=== PATIENT | female | born 1995 | race Caucasian/White ===

== ENCOUNTER 2021-06-24 19:05 | Emergency (ER) | payer OTHER, SELFPAY ==
[2021-06-24 19:10] VITALS: BP 140/90; PULSE 136; RESP 20; TEMP 38.1; O2SAT 98
--- NOTE | 2021-06-24 19:11 | ED.URI ---
HPI - URI/Sore Throat General Chief Complaint: Upper Respiratory Infection Stated Complaint: Sore Throat/Fever Time Seen by Provider: 06/24/21 19:11 Source: patient and RN notes reviewed History of Present Illness HPI Narrative: Patient is a 25-year-old female who presents the urgent care with complaints of sore throat and fever. Patient states that she felt bad yesterday with fatigue and then woke up today with a sore throat and fever. Patient states she did take Tylenol at 3:30 PM. Denies of any known ill exposures. States that no one else in the home has been ill. Patient states she does have a history of asthma and has felt some intermittent shortness of breath but has not needed any treatments. No other acute complaints. No acute distress noted. Patient aware of the plan of care. Some parts of this dictation were generated by voice recognition software and may contain typographical and/or grammatical inaccuracies. Related Data Home Medications Medication Instructions Recorded Confirmed amitriptyline 10 mg PO TID 06/24/21 06/24/21 clomiphene citrate See Rx Instructions .ROUTE .COMPLEX 06/24/21 06/24/21 Allergies Allergy/AdvReac Type Severity Reaction Status Date / Time midazolam [From Versed] Allergy Severe pass out Verified 06/24/21 19:09 Review of Systems Review of Systems: CONSTITUTIONAL: Reports of fever, chills, sweats EYES: Denies visual changes, redness, or discharge. ENT: Denies rhinorrhea, congestion, otalgia. Reports of sore throat CARDIOVASCULAR: Denies chest pain, palpitations, or edema. RESPIRATORY: Denies cough or dyspnea. GASTROINTESTINAL: Denies abdominal pain, nausea, vomiting, or diarrhea. GENITOURINARY: Denies dysuria or hematuria. SKIN: Denies rash or itching. MUSCULOSKELETAL: Denies back pain, joint pain, or myalgia. NEUROLOGIC: Denies headache, numbness, or weakness. All other systems reviewed are negative, except as documented in HPI. [facility] Surgical History Surgical History Hx of removal of ovary Family History Family History Mother Family history of thyroid disease Hypertension Family history of kidney disease Sibling Family history of mental disorder Depression Family history of migraine headaches Asthma Family history of alcoholism Father Hypertension Family history of cardiovascular disease Family history of arthritis Family history of congestive heart failure Other Cerebrovascular accident Diabetes mellitus Family history of Alzheimer's disease Family history of anemia Family history of chronic obstructive pulmonary disease Family history of hearing loss Family history of lung cancer Family history of lung disease Family history of malignant neoplasm of bone Family history of malignant neoplasm of breast Family history of obesity Family history of osteoporosis Social History Social History (Reviewed 04/16/20 @ 16:15 by Ambreen Blancas [facility]) Smoking status: Never smoker Alcohol intake: never Comments At the time of my signature, I reviewed and agree with the nursing past medical, surgical, social, and family history. There is no relevant family history pertinent to the patient complaint. Exam Narrative: GENERAL: This is a well-nourished, well-developed patient. Appears slightly fatigued HEAD: normocephalic, atraumatic. EYES: PERRL. Sclera clear/white. Vision is grossly intact. EARS: External ears normal, auditory canals clear and without drainage, TMs normal without perforation. Hearing grossly intact. NOSE: External nose normal with no obvious nasal discharge, nares without redness, no rhinorrhea. THROAT: Mucous membranes moist. Moderate erythema noted posterior pharynx with mild bilateral tonsillar edema/erythema with moderate postnasal drainage. No exudate or ulceration NECK: Neck supple, non-tender without lymphadeno
== END 2021-06-24 19:44 | disposition home or self-care (01) ==
PROVIDERS: Emergency Provider Nurse Practitioner Family
DX: J02.9 Acute pharyngitis, unspecified (principal); Z20.822 Contact with and (suspected) exposure to COVID-19
CPT/HCPCS: 87081; 87426; 87804; 87880; 99213; C9803; G0463

== ENCOUNTER 2024-04-18 12:58 | Emergency (ER) | payer OTHER, SELFPAY ==
[2024-04-18 13:12] VITALS: BP 151/77; PULSE 104; RESP 18; TEMP 36.6; O2SAT 100
[2024-04-18 13:20] LABS: EDSTREPNEGPOS1 Negative (Negative)
[2024-04-18 13:26] LABS: EDCOVIDSCREEN Negative (Negative); EDINFLUASCREEN Positive (Negative); EDINFLUBSCREEN Negative (Negative)
--- NOTE | 2024-04-18 13:31 | ED_ITS ---
HPI - General Adult General Chief complaint: Upper Respiratory Infection Stated complaint: Sore Throat/Chest Congestion Source: patient Mode of arrival: ambulatory Limitations: no limitations History of Present Illness HPI narrative: Patient presents for evaluation of sick symptoms. Symptom onset six days ago. She reports sinus congestion, sore throat, bilateral ear pain, body aches, fever and chills. She denies any nausea, vomiting or diarrhea. Her child was recently sick with similar symptoms. She does not smoke. Related Data Home Medications ?Medication ?Instructions ?Recorded ?Confirmed ?Last Taken ?Type amitriptyline 10 mg tablet 10 mg PO TID 06/24/21 06/24/21 Unknown History clomiphene citrate 50 mg tablet See Rx Instructions .Route .COMPLEX 06/24/21 06/24/21 Unknown History diltiazem HCl 180 mg mg PO 04/18/24 Unknown History capsule,extended release 24 hr, controlled (DILT-XR) hydrochlorothiazide 12.5 mg tablet mg 04/18/24 Unknown History Allergies Allergy/AdvReac Type Severity Reaction Status Date / Time midazolam (From Versed) Allergy Severe pass out Verified 06/24/21 19:09 Review of Systems Review of Systems: CONSTITUTIONAL: Reports fever and chills EYES: Denies visual changes, redness, or discharge. ENT: Reports sinus congestion/drainage, sore throat and bilateral otalgia CARDIOVASCULAR: Denies chest pain, palpitations, or edema. RESPIRATORY: Reports cough and mild SOB GASTROINTESTINAL: Denies nausea, vomiting, or diarrhea. GENITOURINARY: Denies dysuria or hematuria. SKIN: Denies rash or itching. MUSCULOSKELETAL: Reports generalized body aches NEUROLOGIC: Denies headache, numbness, dizziness, or weakness. PSYCHIATRIC: Denies anxiety or depression. [facility] Past Medical History Medical History Teratoma Surgical History Surgical History Hx of removal of ovary Family History Family History Mother Family history of thyroid disease Hypertension Family history of kidney disease Sibling Family history of mental disorder Depression Family history of migraine headaches Asthma Family history of alcoholism Father Hypertension Family history of cardiovascular disease Family history of arthritis Family history of congestive heart failure Other Cerebrovascular accident Diabetes mellitus Family history of Alzheimer's disease Family history of anemia Family history of chronic obstructive pulmonary disease Family history of hearing loss Family history of lung cancer Family history of lung disease Family history of malignant neoplasm of bone Family history of malignant neoplasm of breast Family history of obesity Family history of osteoporosis Social History Social History Smoking status: Never smoker Alcohol intake: never Living arrangements: with family Gender identity (if verbalized by the patient): Female Sexual Orientation (if Verbalized by the Patient): Straight or Heterosexual Spiritual care concerns: No Exam Narrative: GENERAL: Appears acutely ill but nontoxic HEAD: Normocephalic, atraumatic. EYES: PERRLA and EOMI. ENT: Nares clear, no rhinorrhea or epistaxis. Mucous membranes moist. Oropharynx without tonsillar hypertrophy exudate or other lesions. Bilateral TMs pearly salvador nonbulging NECK: Supple. No adenopathy or masses. No carotid bruits or JVD CHEST: Clear to auscultation. No respiratory distress. No wheezes rales or rhonchi HEART: Regular rate and rhythm. No murmur heard. Normal peripheral pulses. ABDOMEN: Soft, nontender, nondistended, normal active bowel sounds. EXTREMITIES: Normal range of motion. No edema. SKIN: Warm, dry, no rash. NEURO: No focal deficits. Alert and oriented x3. PSYCH: Normal mood and affect. Course Course Emergency Course: This is a 28-year-old female who presented for evaluation of sick symptoms. Influenza A positive. Through shared decision making opted to proceed with Tamiflu even though symptom onset outside of typical window. Follow up with PCP. Go to the ER for worsening symptoms. She requested prednisone so will dc with script for that also. Patient in agreement with care. Level of Care: Express Care Visit Vital Signs Vital signs: Vital Signs Temperature 36.6 C 04/18/24 13:12 Pulse Rate 104 H 04/18/24 13:12 Respiratory Rate 18 04/18/24 13:12 Blood Pressure 151/77 H 04/18/24 13:12 Pulse Oximetry 100 04/18/24 13:12 Oxygen Delivery Room Air 04/18/24 13:12 Temperature 36.6 C 04/18/24 13:12 Pulse Rate 104 H 04/18/24 13:12 Respiratory Rate 18 04/18/24 13:12 Blood Pressure 151/77 H 04/18/24 13:12 Pulse Oximetry 100 04/18/24 13:12 Oxygen Delivery Room Air 04/18/24 13:12 Medical Decision Making Vital Signs Vital Signs: Vital Signs Temperature 36.6 C 04/18/24 13:12 Pulse Rate 104 H 04/18/24 13:12 Respiratory Rate 18 04/18/24 13:12 Blood Pressure 151/77 H 04/18/24 13:12 Pulse Oximetry 100 04/18/24 13:12 Oxygen Delivery Room Air 04/18/24 13:12 Temperature 36.6 C 04/18/24 13:12 Pulse Rate 104 H 04/18/24 13:12 Respiratory Rate 18 04/18/24 13:12 Blood Pressure 151/77 H 04/18/24 13:12 Pulse Oximetry 100 04/18/24 13:12 Oxygen Delivery Room Air 04/18/24 13:12 Lab Data Labs: Lab Results 04/18/24 04/18/24 Range/Units 13:19 13:24 POC Influenza A Ag Positive (Negative) POC Influenza B Ag Negative (Negative) POC SARS CoV-2 Ag Negative (Negative) POC Grp A Strep Screen Negative (Negative) Discharge Plan Discharge Clinical Impression: Influenza A Patient Disposition: Home, Self-Care Condition: Stable Instructions: Antibiotic Form, Influenza (ED) Patient Language: Mongolian Prescriptions: New oseltamivir [Tamiflu] 75 mg capsule 75 mg PO Q12H 5 Days Qty: 10 0RF prednisone 50 mg tablet 50 mg PO DAILY Qty: 5 0RF No Action clomiphene citrate 50 mg tablet See Rx Instructions .ROUTE .COMPLEX Rx Instructions: as prescribed amitriptyline 10 mg tablet 10 mg PO TID diltiazem HCl [DILT-XR] 180 mg capsule,ext.rel 24h degradable PO hydrochlorothiazide 12.5 mg tablet albuterol sulfate [Ventolin HFA] 90 mcg/actuation HFA aerosol inhaler 2 inhalation INHALATION Q4H Qty: 18 3RF Follow-up/Referrals: Kathryn,Celeste Padron APRN [Primary Care Provider] - Time of Disposition: 13:35
--- OUTSIDE RECORDS SUMMARY | 2024-04-18 14:41 | XMS_ITS | Clinical Summary ---
Author Organization [facility] Physician Office Building [address] [place] [id number] Care Team Providers Care Telecommunications Switch Technician Name Role Phone Pedro Mckeon MD Unavailable [phone] Celeste Peralta NP Primary Care Provider [phone] Blanca Falk MD Unavailable Robin Corley NP Unavailable Allergies Active Allergy Reactions Criticality Noted Date Comments Dinoprostone Itching Low 09/24/2021 Midazolam Anaphylaxis High 02/20/2019 bradicardic Medications albuterol (PROVENTIL,MILES INES) 2.5 mg/0.5 mL solution for nebulization Take 0.5 mL (2.5 mg total) by nebulization 3 (three) times a day 180 each 9 Active cetirizine (ZyrTEC) 5 mg chewable tablet Take 1 tablet (5 mg total) by mouth daily as needed for allergies Active amitriptyline (ELAVIL) 10 mg tabletIndication s:Migraine without aura and without status migrainosus, not intractable Take 3 tablets (30 mg total) by mouth nightly 270 tablet 3 4 Active rizatriptan (MAXALT) 10 mg tabletIndication s:Migraine Take 1 tablet (10 mg total) by mouth once as needed for migraine May repeat in 2 hours if needed. No more than 2 tablets in 24 hours. 9 tablet 11 4 025 Active dilTIAZem XR (CARDIZEM CD,DILACOR XR) 240 mg 24 hr capsule Take 1 capsule (240 mg total) by mouth daily 30 capsule 2 5 Active hydroCHLOROthiaz sammy 12.5 mg tablet Take 1 tablet (12.5 mg total) by mouth daily 30 tablet 1 5 Active Active Problems Problem Noted Date Diagnosed Date KELVIN (obstructive sleep apnea) 12/09/2023 Abnormal echocardiogram 11/16/2023 Irregular cardiac rhythm 11/16/2023 Pure hypercholesterolemia 11/16/2023 PVC (premature ventricular contraction) 11/16/19 Assessment & Plan (02/04/2024 5:45 PM MACHINE SHOP INSTRUCTOR): Ventricular ectopy, overall low burden. She reports improvement with metoprolol, but some fatigue. I recommended that she try a class switch to diltiazem. If this is ineffective, antiarrhythmic drug therapy (i.e. with flecainide) can be considered. The patient will follow-up with me in 12 months for an office visit and twelve- lead ECG. Palpitations 08/31/2023 Hypertension, essential 08/31/2023 Overview (08/31/2023): Home BP's 115s/90s. Sx improved but HR elevated at home. Continue Amlodipine 5 mg. Assessment & Plan (03/09/2024 4:42 PM MACHINE SHOP INSTRUCTOR): Lower leg edema possibly r/t recent increase of Amlodipine. Will decrease back to the 5 mg dosage and see if swelling improves. Continue with recently increased Diltiazem to 240 mg. Home BP log in 1 week. Follow up in 4 weeks. Assessment & Plan (08/31/2023 2:35 PM CDT): Home BP's have improved, still getting palpitations and light-headedness daily though. HR elevated at home also. Continue Amlodipine 5 mg and will get an ECHO. 37 weeks gestation of 06/24/2022 Analgesic rebound headache 06/26/2020 Migraine without aura and wi thout status migrainosus, not intractable 06/26/2020 Assessment & Plan (10/29/2023 10:56 AM CDT): The patient is doing well with the current medications. Continue amitriptyline 30 mg at night. Restart rizatriptan 10 mg as needed. Side effects reviewed. Assessment & Plan (03/17/2022 2:03 PM MACHINE SHOP INSTRUCTOR): Stable, follows with Neuro. 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 Assessment & Plan (09/09/2018 9:23 AM CDT): Overall improving Looking for a new neurologist. Dr. Mason is a far drive for her, and also, returning to the [facility] is very stressful for her. It causes memories of her hospital stay and a lot of anxiety. [facility] Assessment & Plan (07/27/2018 4:52 PM CDT): With persistent mental status changes and headache, but overall improving (per ) Release for medical records from [facility] I will complete disability paperwork for plan to return to work August 22. Reviewed medication list with . Status post unilateral salpingo-oophorectomy Overview (01/05/2022): Dermoid, laparoscopic Infertility, female, secondary 07/01/2018 Overview (01/05/2022): Last Assessment & Plan: Patient currently had been going treatment by OBGYN for infertility. Metformin was stopped. Had been on Femara. Will check for prolactin levels. 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 Assessment & Plan (07/01/2018 3:39 AM CDT): Patient currently had been going treatment by OBGYN for infertility. Metformin was stopped. Had been on Femara. Will check for prolactin levels. Acute bilateral low back pain without sciatica 0 03/17/2018 Overview (01/05/2022): Last Assessment & Plan: Acute onset, no injury No red flags High risk due to obesity Recommend conservative treatment initially Recommend ice OR heat to affected area - low back. 20 minutes at a time, 2-3 times a day. NSAIDs Muscle relaxer; discussed potential side effect of drowsiness Home exercises - [facility] [place] handout given ain persists Assessment & Plan (03/17/2018 10:52 AM MACHINE SHOP INSTRUCTOR): Acute onset, no injury No red flags High risk due to obesity Recommend conservative treatment initially Recommend ice OR heat to affected area - low back. 20 minutes at a time, 2-3 times a day. NSAIDs Muscle relaxer; discussed potential side effect of drowsiness Home exercises - [facility] [place] handout given terencen persists Class 3 severe obesity due t o excess calories without serious comorbidity with body mass index (BMI) of 40.0 to 44.9 in adult 04/28/2017 Overview (01/05/2022): Last Assessment & Plan: Obesity is unchanged. Discussed the patient's BMI. The BMI is above average; BMI management plan is completed. General weight loss/lifestyle modification strategies discussed (elicit support from others; identify saboteurs; non-food rewards, etc). Body mass index is 33.27 kg/m . Assessment & Plan (03/17/2022 1:55 PM MACHINE SHOP INSTRUCTOR): Patient currently 23 weeks , continue focusing on healthy diet as directed per [employer]-C[employer] REGISTER BALANCER. Assessment & Plan (09/09/2018 9:24 AM CDT): Obesity is unchanged. Discussed the patient's BMI. The BMI is above average; BMI management plan is completed. General weight loss/lifestyle modification strategies discussed (elicit support from others; identify saboteurs; non-food rewards, etc). Body mass index is 34.72 kg/m . Assessment & Plan (07/27/2018 4:51 PM CDT): Obesity is unchanged. Discussed the patient's BMI. The BMI is above average; BMI management plan is completed. General weight loss/lifestyle modification strategies discussed (elicit support from others; identify saboteurs; non-food rewards, etc). Body mass index is 33.27 kg/m . Assessment & Plan (07/01/2018 3:40 AM CDT): Weight loss discussed and encouraged. Patient verbalized understanding. Assessment & Plan (03/17/2018 10:51 AM MACHINE SHOP INSTRUCTOR): Obesity is worsening. Discussed the patient's BMI. The BMI is above average; BMI management plan is completed. General weight loss/lifestyle modification strategies discussed (elicit support from others; identify saboteurs; non-food rewards, etc). Body mass index is 35.65 kg/m . Comorbidity - Back Pain Assessment & Plan (04/28/2017 12:25 PM MACHINE SHOP INSTRUCTOR): Obesity is unchanged. Discussed the patient's BMI. The BMI is above average; BMI management plan is completed. General weight loss/lifestyle modification strategies discussed (elicit support from others; identify saboteurs; non-food rewards, etc). Body mass index is 34.22 kg/m . Tension type headache 04/28/2017 Overview (01/05/2022): Last Assessment & Plan: Likely a result of inadequate sleep, long work hours, and stress regarding ill grandmother Discussed importance of making sleep a priority Cautioned against use of abortive headache medication more than 3-4 times weekly as this increases the risk of medication overuse or rebound headache. discussed healthy diet, exercise and adequate sleep recommend at least 10 minutes of moderate intensity exercise most days of the week with a goal of 150 minutes weekly. Assessment & Plan (09/09/2018 9:23 AM CDT): Persistent. Hopefully improving sleep with the increased dose of trazodone will help. Assessment & Plan (04/28/2017 12:27 PM MACHINE SHOP INSTRUCTOR): Likely a result of inadequate sleep, long work hours, and stress regarding ill grandmother Discussed importance of making sleep a priority Cautioned against use of abortive headache medication more than 3-4 times weekly as this increases the risk of medication overuse or rebound headache. discussed healthy diet, exercise and adequate sleep recommend at least 10 minutes of moderate intensity exercise most days of the week with a goal of 150 minutes weekly. Atopic rhinitis 05/01/2015 Asthma 05/01/2015 Overview (01/05/2022): Last Assessment & Plan: Seasonal symptoms well controlled with inhalers Cont current. Assessment & Plan (03/17/2022 1:55 PM MACHINE SHOP INSTRUCTOR): Sx controlled. Assessment & Plan (04/28/2017 12:25 PM MACHINE SHOP INSTRUCTOR): Seasonal symptoms well controlled with inhalers Cont current. Fall (on) (from) other stairs and steps, initial encounter Resolved Problems Problem Noted Date Diagnosed Date Resolved Date Seizure-like activity 07/01/20182018 Assessment & Plan (07/01/2018 3:46 AM CDT): New onset seizure. Clinically consistent with grand mal seizures. CT of the head was negative Neurology was consulted MRI and EEG is pending in a.m., will follow up with result Will continue with Keosirisra Seizure precautions Fall precautions Aspiration precautions Patient reported intermittent expressive aphasia onset about 10 days ago however on today's exam patient speech is fluent. She does exhibit slight flattening of nasolabial fold on the left however patient's boyfriend states that it is at baseline. Possible differential diagnosis for TIA, MS, complex migraine headache, partial seizures should be entertained. Neurology consult is pending in a.m.. Will follow with recommendations. Annual physical exam 04/28/2017 019 Assessment & Plan (04/28/2017 12:25 PM MACHINE SHOP INSTRUCTOR): Patient independant in all ADLs and IADLs. no significant decline in overall physical or mental health over last 12 months. no ER visits or hospital stays. Adiposity 05/01/2015 09/09/2018 Overview (05/29/2016): Obesity 32 weeks gestation of 04/28/2019 Encounters Date Type Department Care Team Description 04/04/2024 Telephone [facility] at [address] [phone] Celeste Peralta NP Apr 05 appt with Celeste Peralta cancelled 03/13/2024 Orders Only [facility] at [address] [phone] Celeste Peralta, REGINALDO Localized swelling of both lower legs (Primary Dx); Localized swelling of right foot 03/09/2024 2:00 PM MACHINE SHOP INSTRUCTOR Office Visit [facility] at [address] [phone] Celeste Peralta, REGINALDO Hypertension, essential (Primary Dx) 03/09/2024 10:00 AM MACHINE SHOP INSTRUCTOR Procedure [facility] [address], [place] [address] Palpitations (Primary Dx); PVC (premature ventricular contraction) 03/09/2024 Nurse Triage [facility] at [address] [phone] Celeste Peralta NP 03/09/2024 Orders Only [facility] at [address] [phone] Celeste Peralta NP 03/06/2024 Telephone [facility] [address] [facility] [address], [place] [address] Maria Teresa Guerin NP 02/25/2024 Telephone [facility] at [address] [phone] Celeste Peralta NP 02/22/2024 Orders Only [facility] at [address] [phone] Celeste Peralta NP 02/22/2024 Orders Only [facility] at [address] [phone] Celeste Peralta NP 02/04/2024 11:00 AM MACHINE SHOP INSTRUCTOR Office Visit [facility] [address] [place] [phone] Jose Villagomez MD Palpitations (Primary Dx); PVC (premature ventricular contraction) from Last 3 Months Immunizations Immunization Administration Dates Next Due Influenza, Quadrivalent, Rec ombinant, Egg Free, Preservative Free, Intramuscular 12/22/2019 Influenza, Quadrivalent, Spl it, Preservative Free, Intramuscular 11/22/2018 Influenza, Trivalent, Split, Preservative Free, Intradermal 11/22/2014,11/22/2013 Influenza, Unspecified 02/22/2023(Deferr ed: Patient Refused),02/22/2022(Deferred: Patient Refused),12/15/2017,10/29/2016 MMR 06/15/2019 Tdap 04/14/2019 Surgical History Surgery Date Site/Laterality Comments OOPHORECTOMY left salpingo oopherectomy HYSTERECTOMY One ovary out 07/10 D&C FIRST TRIMESTER / TX INCOMPLETE / MISSED / SEPTIC / INDUCED Medical History Medical History Date Comments Asthma History of recurrent UTIs Seizure (HCC) 07/01/2018 Neuromuscular disease or syndrome (HCC) Encephalitis mnda receptor en cephalitis Abnormal Pap smear of cervix Urinary tract infection Asthma Hypertension, essential 08/31/2023 Family History Medical History Relation Name Comments Alcohol abuse Brother 1 David Vision loss Brother 1 David Asthma Brother 2 David jr Migraines Brother 3 Arthritis Father David Hypertension Father David Kidney disease Father David Vision loss Father David Early Father's Sister Letty Arthritis Maternal Grandfather Ashok Alzheimer's disease Maternal Grandmother Laquita Arthritis Maternal Grandmother Laqutia Cancer Maternal Grandmother Laquita Diabetes Maternal Grandmother Laquita Heart attack Maternal Grandmother Laquita Heart disease Maternal Grandmother Laquita Hyperlipidemia Maternal Grandmother Laquita Hypertension Maternal Grandmother Laquita Kidney disease Maternal Grandmother Laquita Stroke Maternal Grandmother Laquita Anemia Mother Noy Hypertension Mother Noy Ovarian cysts Mother Noy Rashes / Skin problems Mother Noy Thyroid disease Mother Noy Vision loss Mother Noy Arthritis Paternal Grandfather Barron Colon cancer Paternal Grandfather Barron Diabetes Paternal Grandfather Barron Heart disease Paternal Grandfather Barron Kidney disease Paternal Grandfather Barron Arthritis Paternal Grandmother Barron Asthma Paternal Grandmother Barron Breast cancer Paternal Grandmother Barron COPD Paternal Grandmother Barron Heart disease Paternal Grandmother Barron Hypertension Paternal Grandmother Barron Kidney disease Paternal Grandmother Barron Lung cancer Paternal Grandmother Barron Ovarian cancer Neg Hx Relation Name Status Comments Brother 1 David Alive Brother 2 David jr Brother 3 Father David Alive Father's Sister Letty Maternal Grandfather Ashok Maternal Grandmother Laquita Mother Noy Paternal Grandfather Barron Paternal Grandmother Barron Social History Tobacco Use Types Packs/Day Years Used Date Smoking Tobacco: Never Smokeless Tobacco: Never Tobacco Cessation:Counseling Given: Not Answered Alcohol Use Standard Drinks/Week Comments No 0 (1 standard drink = 0.6 oz pur e alcohol) Social Connection and Isolat ion Panel [NHANES] Answer Date Recorded In a typical week, how many times do you talk on the phone with family, friends, or neighbors? More than three times a week 06/05/2022 How often do you get togethe r with friends or relatives? More than three times a week 06/05/2022 Attends Mosque Services Not on file 06/05 Active Member of Clubs or Organizations Not on f ile 06/05/2022 Attends Club or Organization Meetings Not on aaron e 06/05/2022 Are you , , di vorced, , never , or living with a partner? 06/05/2022 AUDIT-C Answer Date Recorded Frequency of Alcohol Consumption Not on file 09/22/2022 Q2: How many drinks containi ng alcohol do you have on a typical day when you are drinking? Patient does not drink Frequency of Binge Drinking Not on file 02/2022 Overall Financial Resource Strain (CARDIA) Answe r Date Recorded How hard is it for you to pa y for the very basics like food, housing, medical care, and heating? Not hard at all 06/05/2022 PHQ-2 Answer Date Recorded PHQ-2 Total Score (If total score is 3 or more points, staff should administer the PHQ-9) 0 03/09/2024 Hunger Vital Sign Answer Date Recorded Within the past 12 months, y ou worried that your food would run out before you got the money to buy more. Never true 06/06/19 23 Within the past 12 months, t he food you bought just didn't last and you didn't have money to get more. Never true 06/05/2022 PRAPARE - Transportation Answer Date Re corded In the past 12 months, has l ack of transportation kept you from medical appointments or from getting medications? No 05/23 In the past 12 months, has l ack of transportation kept you from meetings, work, or from getting things needed for daily living? No 06/05/2022 Housing Stability Vital Sign Answer Jayjay e Recorded In the last 12 months, was t here a time when you were not able to pay the mortgage or rent on time? No 06/05/2022 Number of Places Lived in the Last Year Not on f ile 06/05/2022 In the last 12 months, was t here a time when you did not have a steady place to sleep or slept in a prison (including now)? No 06/05/2022 [place] Depression Scale Answer Date Recorded [place] Depression Scale Total 1 06/26/2022 The thought of harming myself has occurred to me . Never 06/26/2022 Personal Safety Answer Date Recorded Have you ever been in or are you currently in a harmful physical or emotional relationship or is someone making you feel afraid or unsafe? Denies 06/24/2022 Comments Unknown Sex and Gender Information Value Date Recorded Sex Assigned at Not on file Legal Sex Female 11:27 AM MACHINE SHOP INSTRUCTOR Gender Identity Not on file Sexual Orientation Straight 07/04/2018 7: 51 PM CDT Obstetrics History Para Term AB IAB SAB Ectopic Multiple Livin g Live Births 3 2 2 0 1 0 0 0 0 2 2 Date Outcome GA Total Labor Labor/2nd/3rd Weight Sex Type Anes PTL Anupama A1 A5 Name Clin 04/23/ 2020 Term 39w 3d 4h 02m 3h 58m/0h 04m 3.25 kg (7 lb 2.6 oz) F Vag-F orcep s Epidur al N Livin g 8 9 ,G IRLCR Rob Watkins MD Delivery Location:This Facil ity ([facility]) 2 AB 2022 Term 37w 1d 6h 48m 6h 10m/0h 32m/0h 06m 3.5 kg (7 lb 11.5 oz) M Vag-S pont Epidur al N Livin g 8 9 ,B Sharmila Prabhakar MD Delivery Location:This Facil [facility]y ([facility]) Last Filed Vital Signs Vital Sign Reading Time Taken Comments Blood Pressure 136/82 03/09/2024 2:05 PM MACHINE SHOP INSTRUCTOR Pulse 101 03/09/2024 2:05 PM MACHINE SHOP INSTRUCTOR Temperature 36.9 C (98.4 F) 03/09/2024 2:05 PM MACHINE SHOP INSTRUCTOR Respiratory Rate 16 07/21/2023 4:03 PM CDT Oxygen Saturation 98% 03/09/2024 2:05 PM MACHINE SHOP INSTRUCTOR Inhaled Oxygen Concentration - - Weight 109.8 kg (242 lb) 03/09/2024 2:05 PM MACHINE SHOP INSTRUCTOR Height 167.6 cm (5' 6 ) 03/09/2024 2:05 PM MACHINE SHOP INSTRUCTOR Body Mass Index 39.06 03/09/2024 2:05 PM MACHINE SHOP INSTRUCTOR Plan of Treatment Health Maintenance Due Date Last Done Comments Hepatitis B Screening 11/13/2011 Regular Well Visit/Exam 18-64 03/17/2023 03/17/2022, 01/31/2021, 01/31/2020, Additional history exists Covid-19 Vaccine ( season) 2023 04/26/2020, 04/05/2020 Influenza Vaccine (#1) 2023 2, 12/22/2019, 11/22/2018, Additional history exists Pneumococcal vaccine <65 (1 of 2 - PCV) 07/05/2024 Postponed from 2012 (Patient declined, but will receive in the future) Depression Screening 03/09/2025 03/09/2024, 08/31/2023, 08/06/2023, Additional history exists DTaP/Tdap/Td Vaccine (2 - Td or Tdap) 04/14/2029 04/14/2019 Cervical Cancer Screening Discontinued 2020, 01/31/2020, 12/20/2017, Additional history exists Hepatitis C Screening Completed 12/15/2021, 022 HPV Vaccines Aged Out No longer eligi ble based on patient's age to complete this topic Varicella Vaccines Discontinued Procedures Procedure Name Priority Date/Time Associated Diagnosis Comments ECG 12-LEAD Routine 03/09/2024 10:54 AM MACHINE SHOP INSTRUCTOR Palpitations PVC (premature ventricular contraction) ECG 12-LEAD Routine 02/04/2024 11:14 AM MACHINE SHOP INSTRUCTOR Palpitations PVC (premature ventricular contraction) HEPATITIS C ANTIBODY Routine 12/15/2021 PAP WITH REFLEX TO HIGH RISK HPV Routine 01/31/2021 9:54 AM MACHINE SHOP INSTRUCTOR Women's annual routine gynecological examination from Last 3 Months or Most Recently Relevant to Health Maintenance Results * ECG 12 lead (03/09/2024 10:54 AM MACHINE SHOP INSTRUCTOR) Jose Villagomez MD ECG ORDERABLES Edited Result - Final * ECG 12 lead (02/04/2024 11:14 AM MACHINE SHOP INSTRUCTOR) Jose Villagomez MD ECG ORDERABLES Final R esult * Hepatitis C antibody (12/15/2021) SCRIBED HCV ab nonreactive Blood Blanca Falk MD LAB MICROBIOLOGY - GENERAL ORDERABLES Final Result * (ABNORMAL) Pap with reflex to High Risk HPV (01/31/2021 9:54 AM MACHINE SHOP INSTRUCTOR) Swab (Pap test) 01/31/2021 9 :54 AM MACHINE SHOP INSTRUCTOR 02/04/2021 1:45 PM MACHINE SHOP INSTRUCTOR Narrative PATHOLOGY [facility] - 02/11/2021 12:54 PM MACHINE SHOP INSTRUCTOR EPIC results best viewed via link to PDF [address] [address] Tele: Cassia Munoz MD - Pathology Supervisor CYTOLOGY REPORT Note to Patients: This report may contain a detailed description of human tissue sent by a health care provider to the laboratory for pathologic evaluation. The content of this report is essential for diagnosis and may provide important critical findings. This information may be unfamiliar to patients to review without a medical professional present. It is advised that the patient review this report in the presence of a health care provider who can answer questions and explain the details. Patient Name: NIKHIL SUTHERLAND Address: [address] [place] [address] Gender: F : 1995 (Age: 25) Service: Location: Hospital #: [id number] Patient Type: [facility] SPECIMEN Taken: 01/31/2021 Reported: 02/11/2021 Physician(s): Pedro Mckeon M.D. FINAL DIAGNOSIS: Specimen Type: - ThinPrep Pap w/ reflex HPV Statement of Specimen Adequacy: Source: Cervical/Endocervical - Satisfactory for interpretation - Endocervical /Transformation Zone component present - Case screened using computer assisted imaging technology and manually re- screened by a cloth bleaching range back tender. General Categorization: - Epithelial cell abnormality Interpretation: - Atypical squamous cells of undetermined significance (ASCUS) - Specimen sent for reflex HPV testing. as/02/11/2021 12:54 Examining Pathologist: Farhana Barboza CT (ASCP) RAMAN Traore (ASCP) Report Reviewed and Electronically Signed By Tramaine Miller M.D. Clerical Data Follow A; A8912, [id number] Z01.419 ADDENDA: Addendum Comment Ancillary Testing: HPV High Risk Group (16, 18, 31, 33, 35, 39, 45, 51, 52, 56, 58, 59, 66 and 68) - Not Detected Reference Range: Not Detected This test was performed using the CATRINA 4800 RAMAN Armas (ASCP) Date Ordered: 02/11/2021 Status: Signed Out Date Complete: 02/13/2021 By: RAMAN Armas (ASCP) Date Reported: 02/13/2021 CLINICAL DIAGNOSIS AND HISTORY Last Menstrual Period: 01/24/2021 This specimen has been rescreened in accordance with the [facility] Laboratory Quality Management Program. REPORT IMAGES AND/OR SCANNED DOCUMENTS ONLY VIEWABLE IN PDF FORMAT The Pap test is a screening test used to aid in the detection of cervical cancer and its precursors. It should not be the sole means by which malignant and premalignant lesions are diagnosed. Both false negative and false positive results may occur. It also has poor sensitivity for the detection of endometrial lesions and should not be used to evaluate suspected endometrial abnormalities. For these reasons it is most important to obtain Pap tests at regular intervals, as recommended by your physician or nurse practitioner. us Pedro Mckeon MD LAB CYTOLOGY ORDERABLES Final Result PATHOLOGY [facility] Laboratory Receiving [id number] [place] [address] from Last 3 Months or Most Recently Relevant to Health Maintenance Insurance [facility] [employer] Address: [facility] [id number] [phone] [facility] [employer] Address: [facility] [id number] [place] [id number] [facility] [employer] PLANS Address: [address] [address] Advance Directives For more information, please contact: [phone] * Full Code (Latest Code Status on File) Date Activated Date Inactivated Comments 06/24/2022 6:07 PM 06/27/2022 1:42 PM Full CPR in ca se of cardiopulmonary arrest * Full Code Date Activated Date Inactivated Comments 06/15/2019 12:29 PM 06/17/2019 8:28 PM * Full Code Date Activated Date Inactivated Comments 06/14/2019 5:04 PM 06/15/2019 12:29 PM Full CPR in case of cardiopulmonary arrest * Full Code Date Activated Date Inactivated Comments 06/30/2018 8:10 PM 07/02/2018 5:07 PM Care Teams Telecommunications Switch Technician Relationship Specialty Start Date End Date Celeste Peralta NP PCP - General Family Medicine 03/17/22 Pedro Mckeon MD Treating Plant Pumper Obstetrics and Gynecology 06/17/19 Blanca Falk MD [address] [place], [place] [id number] Consulting Physician Obstetrics and Gynecology 03/17/22 Robin Corley NP [address] [place] [address] Nurse Practitioner Neurology 03/17/22
--- OUTSIDE RECORDS SUMMARY | 2024-04-18 14:41 | XMS_ITS | Referral Summary ---
Author Organization [facility] [address] [place] [phone] Care Team Providers Care Senior Industrial Engineer Name Role Phone Pedro Mckeon MD Unavailable [phone] Celeste Peralta NP Primary Care Provider [phone] Blanca Falk MD Unavailable Robin Corley NP Unavailable Encounters Date Type Department Care Team Description 04/04/2024 Telephone [facility] Primary Care at [address] [phone] Celeste Peralta NP Apr 05 appt with Celeste Peralta cancelled 03/13/2024 Orders Only [facility] Primary Care at [address] [phone] Celeste Peralta NP Localized swelling of both lower legs (Primary Dx); Localized swelling of right foot 03/09/2024 2:00 PM CAREER DEVELOPMENT COORDINATOR Office Visit [facility] Primary Care at [address] [phone] Celeste Peralta NP Hypertension, essential (Primary Dx) 03/09/2024 Nurse Triage [facility] Primary Care at [address] [phone] Celeste Peralta NP 03/09/2024 Orders Only [facility] Primary Care at [address] [phone] Celeste Peralta, ENGINEERING JOB TITLES 03/09/2024 10:00 AM CAREER DEVELOPMENT COORDINATOR [facility] [address] [place] [phone] Palpitations (Primary Dx); PVC (premature ventricular contraction) 03/06/2024 [facility]phone [facility] [address] [place] [phone] Maria Teresa Guerin NP 02/25/2024 Telephone [facility] Primary Care at [address] [phone] Celeste Peralta, REGINALDO 02/22/2024 Orders Only [facility] Primary Care at [address] [phone] Celeste Peralta NP 02/22/2024 Orders Only [facility] Primary Care at [address] [phone] Celeste Peralta NP 02/04/2024 11:00 AM CAREER DEVELOPMENT COORDINATOR Office [facility] [address] [place] [phone] Jose Villagomez MD Palpitations (Primary Dx); PVC (premature ventricular contraction) from Last 3 Months Allergies Active Allergy Reactions Criticality Noted Date [...] 11/16/19 Assessment & Plan (02/04/2024 5:45 PM CAREER DEVELOPMENT COORDINATOR): Ventricular ectopy, overall low burden. She reports [...] mg. Assessment & Plan (03/09/2024 4:42 PM CAREER DEVELOPMENT COORDINATOR): Lower leg edema possibly r/t recent increase [...] reviewed. Assessment & Plan (03/17/2022 2:03 PM CAREER DEVELOPMENT COORDINATOR): Stable, follows with Neuro. 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 Assessment & Plan (09/09/2018 9:23 AM CDT): Overall improving Looking for a new neurologist. Dr. Mason is a far drive for her, and also, returning to the [facility] is very stressful for her. It causes memories of her hospital stay and a lot of anxiety. Will look for a new provider thru [facility]. Assessment & Plan (07/27/2018 4:52 PM CDT): With persistent mental status changes and headache, but overall improving (per ) Release [facility] medical records from [facility] I will complete disability paperwork for plan [...] 9:18 AM CDT): Looking for a new armature tester - [facility]. Assessment & Plan (07/01/2018 3:39 [...] side effect of drowsiness Home exercises - [facility] Oumar handout given ain persists Assessment & Plan (03/17/2018 10:52 AM CAREER DEVELOPMENT COORDINATOR): Acute onset, no injury No red flags High risk due to obesity Recommend conservative treatment initially Recommend ice OR heat to affected area - low back. 20 minutes at a time, 2-3 times a day. NSAIDs Muscle relaxer; discussed potential side effect of drowsiness Home exercises - [facility] Rabun handout given ain persists Class 3 severe obesity due t [...] . Assessment & Plan (03/17/2022 1:55 PM CAREER DEVELOPMENT COORDINATOR): Patient currently 23 weeks , continue focusing on healthy diet as directed per OB-POCKET BUILDER. Assessment & Plan (09/09/2018 9:24 AM CDT): [...] understanding. Assessment & Plan (03/17/2018 10:51 AM CAREER DEVELOPMENT COORDINATOR): Obesity is worsening. Discussed the patient's BMI. The BMI is above average; BMI management plan is completed. General weight loss/lifestyle modification strategies discussed (elicit support from others; identify saboteurs; non-food rewards, etc). Body mass index is 35.65 kg/m . Comorbidity - Back Pain Assessment & Plan (04/28/2017 12:25 PM CAREER DEVELOPMENT COORDINATOR): Obesity is unchanged. Discussed the patient's BMI. [...] help. Assessment & Plan (04/28/2017 12:27 PM CAREER DEVELOPMENT COORDINATOR): Likely a result of inadequate sleep, long [...] current. Assessment & Plan (03/17/2022 1:55 PM CAREER DEVELOPMENT COORDINATOR): Sx controlled. Assessment & Plan (04/28/2017 12:25 PM CAREER DEVELOPMENT COORDINATOR): Seasonal symptoms well controlled with inhalers Cont [...] follow up with result Will continue with Keppra Seizure precautions Fall precautions Aspiration precautions Patient [...] 019 Assessment & Plan (04/28/2017 12:25 PM CAREER DEVELOPMENT COORDINATOR): Patient independant in all ADLs and IADLs. no significant decline in overall physical or mental health over last 12 months. no ER visits or hospital stays. Adiposity 05/01/2015 09/09/2018 Overview (05/29/2016): Obesity 32 weeks gestation of 04/28/2019 Immunizations Immunization Administration Dates Next Due Influenza, Quadrivalent, Rec ombinant, Egg Free, Preservative Free, Intramuscular 12/22/2019 Influenza, Quadrivalent, Spl it, Preservative Free, Intramuscular 11/22/2018 Influenza, Trivalent, Split, Preservative Free, Intradermal 11/22/2014,11/22/2013 Influenza, Unspecified 02/22/2023(Deferr ed: Patient Refused),02/22/2022(Deferred: Patient Refused),12/15/2017,10/29/2016 MMR 06/15/2019 Tdap 04/14/2019 Social History Tobacco Use Types Packs/Day Years [...] than three times a week 06/05/2022 Attends [employer] Not on file 06/05 Active Member [...] place to sleep or slept in a skilled nursing (including now)? No 06/05/2022 Brinnon Depression Scale Answer Date Recorded Brinnon Depression Scale Total 1 06/26/2022 The thought [...] on file Legal Sex Female 11:27 AM CAREER DEVELOPMENT COORDINATOR Gender Identity Not on file Sexual Orientation Straight 07/04/2018 7: 51 PM CDT Last Filed Vital Signs Vital Sign Reading Time Taken Comments Blood Pressure 136/82 03/09/2024 2:05 PM CAREER DEVELOPMENT COORDINATOR Pulse 101 03/09/2024 2:05 PM CAREER DEVELOPMENT COORDINATOR Temperature 36.9 C (98.4 F) 03/09/2024 2:05 PM CAREER DEVELOPMENT COORDINATOR Respiratory Rate 16 07/21/2023 4:03 PM CDT Oxygen Saturation 98% 03/09/2024 2:05 PM CAREER DEVELOPMENT COORDINATOR Inhaled Oxygen Concentration - - Weight 109.8 kg (242 lb) 03/09/2024 2:05 PM CAREER DEVELOPMENT COORDINATOR Height 167.6 cm (5' 6 ) 03/09/2024 2:05 PM CAREER DEVELOPMENT COORDINATOR Body Mass Index 39.06 03/09/2024 2:05 PM CAREER DEVELOPMENT COORDINATOR Plan of Treatment Not on file Procedures Procedure Name Priority Date/Time Associated Diagnosis Comments ECG 12-LEAD Routine 03/09/2024 10:54 AM CAREER DEVELOPMENT COORDINATOR Palpitations PVC (premature ventricular contraction) ECG 12-LEAD Routine 02/04/2024 11:14 AM CAREER DEVELOPMENT COORDINATOR Palpitations PVC (premature ventricular contraction) HEPATITIS C ANTIBODY Routine 12/15/2021 PAP WITH REFLEX TO HIGH RISK HPV Routine 01/31/2021 9:54 AM CAREER DEVELOPMENT COORDINATOR Women's annual routine gynecological examination from Last 3 Months or Most Recently Relevant to Health Maintenance Results * ECG 12 lead (03/09/2024 10:54 AM CAREER DEVELOPMENT COORDINATOR) Jose Villagomez MD ECG ORDERABLES Edited Result - Final * ECG 12 lead (02/04/2024 11:14 AM CAREER DEVELOPMENT COORDINATOR) Jose Villagomez MD ECG ORDERABLES Final R esult * Hepatitis C antibody (12/15/2021) SCRIBED HCV ab nonreactive Blood Blanca Falk MD LAB MICROBIOLOGY - GENERAL ORDERABLES Final Result * (ABNORMAL) Pap with reflex to High Risk HPV (01/31/2021 9:54 AM CAREER DEVELOPMENT COORDINATOR) Swab (Pap test) 01/31/2021 9 :54 AM CAREER DEVELOPMENT COORDINATOR 02/04/2021 1:45 PM CAREER DEVELOPMENT COORDINATOR Narrative PATHOLOGY [facility] - 02/11/2021 12:54 PM CAREER DEVELOPMENT COORDINATOR EPIC results best viewed via link to PDF [address] [address] Tele: Cassia Munoz MD - Accountant Tax CYTOLOGY REPORT Note to Patients: This report [...] and explain the details. Patient Name: NIKHIL PARR Address: [address] [place] [address] Gender: F : 1995 (Age: 25) Service: Location: N : [id number] Hospital #: [id number] Patient Type: [facility] SPECIMEN Taken: 01/31/2021 Reported: 02/11/2021 Physician(s): Pedro Mckeon M.D. FINAL DIAGNOSIS: Specimen Type: - ThinPrep Pap w/ reflex HPV Statement of Specimen Adequacy: Source: Cervical/Endocervical - Satisfactory for interpretation - Endocervical /Transformation Zone component present - Case screened using computer assisted imaging technology and manually re- screened by a security researcher. General Categorization: - Epithelial cell abnormality Interpretation: - Atypical squamous cells of undetermined significance (ASCUS) - Specimen sent for reflex HPV testing. as/02/11/2021 12:54 Examining Pathologist: Farhana Barboza CT (ASCP) RAMAN Traore (ASCP) Report Reviewed and Electronically Signed By Tramaine Miller M.D. Clerical Data Follow A; [id number] Z01.419 ADDENDA: Addendum Comment Ancillary Testing: HPV [...] has been rescreened in accordance with the [facility] Laboratory Quality Management Program. REPORT IMAGES AND/OR [...] recommended by your physician or nurse practitioner. Pedro Mckeon MD LAB CYTOLOGY ORDERABLES Final Result PATHOLOGY [facility] Laboratory Receiving [address] [place] [address] from Last 3 Months or Most Recently Relevant to Health Maintenance Insurance [employer] Address: [facility] [id number] [phone] [facility] [employer] Address: [id number] [place] [address] [facility] Advance Directives For more information, please contact: [phone] * Full Code (Latest Code Status on [...] 8:10 PM 07/02/2018 5:07 PM Care Teams Senior Industrial Engineer Relationship Specialty Start Date End Date Celeste Peralta NP PCP - General Family Medicine 03/17/22 Pedro Mckeon MD Percussion Welding Machine Operator Obstetrics and Gynecology 06/17/19 Blanca Falk MD [address] [place] [address] Consulting Physician Obstetrics and Gynecology 03/17/22 Robin Corley NP [address] [place] [address] Nurse Practitioner Neurology 03/17/22
--- OUTSIDE RECORDS SUMMARY | 2024-04-18 14:41 | XMS_ITS | Encounter Summary ---
Author Organization [facility] Home Care Servic es Address [address] [place] [address] Phone Care Team Providers Care Rough Planer Tender Name Role Phone Anyi Head MD Primary Care Provider [phone] Ravi Brooks MD Primary Care Provider [phone] Pedro Mckeon MD Unavailable [phone] No, Physician Primary Care Provider [phone] Celeste Peralta NP Primary Care Provider [phone] Blanca Falk MD Unavailable Robin Corley NP Unavailable Encounter Details Date Type Department Care Team (Late st Contact Info) Description 08/29/2018 Orders Only [facility] [address] [place] [phone] Jone Hernandez, [facility] Seizure ([facility]) Social History Tobacco Use Types Packs/Day Years Used Date Smoking Tobacco: Never Smokeless Tobacco: Never Alcohol Use Standard Drinks/Week Comments No 0 (1 standard drink = 0.6 oz pur e alcohol) Comments No Sex and Gender Information Value Date Recorded Sex Assigned at Not on file Legal Sex Female 11:27 AM FRUIT SORTER Gender Identity Not on file Sexual Orientation Straight 07/04/2018 7: 51 PM CDT documented as of this encounter Progress Notes * Jone Hernandez, [facility] - 08/29/2018 1:04 PM CDT [facility] to initiate peripheral iv access, and maintain for infusion NS 10 ml IV PRN to flush and maintain iv access Pre Meds: Diphenhydramine 25 mg by mouth 30 minutes prior to IVIG Ibuprofen 600 mg by mouth 30 minutes prior to IVIG Prednisone 20 mg by mouth, 30 minutes prior to IVIG IVIG , Gammunex C 93 gm IV daily x 2 days (Rate) Infuse at 48 ml/ hr x 30min (24 ml) 95ml/hr x 30min 47.5ml, 190ml/hr x 30min 95ml, 380ml/hr x 30min, for remainder 763.5 ml May slow rate if not tolerated documented in this encounter Plan of Treatment Not on file documented as of this encounter Visit Diagnoses Diagnosis Seizure (HCC) Other convulsions documented in this encounter Additional Health Concerns Infection Onset Date Last Indicated Resolved Time COVID: Suspected 01/05/2022 01/05/2022 01/05/2022 8:44 PM FRUIT SORTER Rhino/Enterovirus 01/05/2022 01/05/2022 01/12/2022 3:05 AM FRUIT SORTER documented as of this encounter Care Teams Rough Planer Tender Relationship Specialty [place] [id number] [address] PCP - General 05/22/16 02/19/19 Ravi Brooks MD [address] [place] [address] PCP - General 02/20/19 09/23/21 No, Physician PCP - General 09/24/21 03/16/22 Celeste Peralta NP PCP - General Family Medicine 03/17/22 Pedro Mckeon MD [address] [place] [address] Charge Aide Obstetrics and Gynecology 06/17/19 Blanca Falk MD [address] [facility] D [facility] [address] [place] [address] Consulting Physician Obstetrics and Gynecology 03/17/22 Robin Corley, REGINALDO [address] [facility] [address] [place], [place] [id number] Nurse Practitioner Neurology 03/17/22 documented as of this encounter
--- OUTSIDE RECORDS SUMMARY | 2024-04-18 14:41 | XMS_ITS | Clinical Summary ---
Author Organization [facility] Address [address] [place] [phone] Phone Care Team Providers Care Copier Field Service Technician Name Role Phone Anyi Heda MD Primary Care Provider [phone] Allergies Active Allergy Reactions Criticality Noted Date Comments Midazolam Other (See Comments) Low 02/20/2019 bradicardic Medications ibuprofen (MOTRIN) 600 mg tablet Take 600 mg by mouth. 06/17/2019 Active acetaminophen/d iphenhydramine (TYLENOL PM ORAL) Take 2 Capsules by mouth daily. 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 Metformin was stopped. Had been on Femara. Will check for prolactin levels. Acute bilateral low back pain without sciatica 0 03/17/2018 Overview (08/15/2018): Last Assessment & Plan: Acute onset, no injury No red flags High risk due to obesity Recommend conservative treatment initially Recommend ice OR heat to affected area - low back. 20 minutes at a time, 2-3 times a day. NSAIDs Muscle relaxer; discussed potential side effect of drowsiness Home exercises - [facility] handout given ain persists Class 1 obesity due to exces s calories with serious comorbidity and body mass index (BMI) of 33.0 to 33.9 in adult 04/28/2017 Overview (08/15/2018): Last Assessment & Plan: Obesity is unchanged. Discussed the patient's BMI. The BMI is above average; BMI management plan is completed. General weight loss/lifestyle modification strategies discussed (elicit support from others; identify saboteurs; non-food rewards, etc). Body mass index is 33.27 kg/m . Tension type headache 04/28/2017 Overview (08/15/2018): Last Assessment & Plan: Likely a result [...] with a goal of 150 minutes weekly. Asthma 05/01/2015 Overview (08/15/2018): Last Assessment & Plan: Seasonal symptoms well controlled with inhalers Cont current. Atopic rhinitis 05/01/2015 Catatonia Teratoma of left ovary Acute metabolic encephalopathy Anti-NMDA receptor encephalitis PVC's (premature ventricular contractions) Fall Suicidal ideation Resolved Problems Problem Noted Date Diagnosed Date Resolved Date Seizure 07/08/2018 07/22/2018 Immunizations Immunization Administration Dates Next Due Influenza Seasonal Unspecified Formulation IM Family History Medical History Relation Name Comments Asthma Brother 1 David Jenny Migraines Brother 2 Pedro Jenny Anemia Maternal Grandmother Laquita Pemberton Hypertension Maternal Grandmother Laquita Pemberton Kidney Disease Maternal Grandmother Laquita Pemberton Peripheral Neuropathy Maternal Grandmother Laquita Pemberton Stroke Maternal Grandmother Laquita Pemberton High Cholesterol Mother Noy Lindolock Hypertension Mother Noy [place]ock Kidney Disease Mother Noy [place] Alzheimer's Disease Paternal Grandfather Ghulam [place]ock Parkinson's Disease Paternal Grandfather Ghulam [place] Cancer Paternal Grandmother Lula Jenny Diabetes Paternal Grandmother Lula Alvarado Heart Disease Paternal Grandmother Lula Alvarado Hypertension Paternal Grandmother Lula Alvarado Kidney Disease Paternal Grandmother Lula Alvarado Relation Name Status Comments Brother 1 David Alvarado Brother 2 Pedro Alvarado Maternal Grandmother Laquita Pemberton Mother Noy Alvarado Paternal Grandfather Ghulam Alvarado Paternal Grandmother Lula Alvarado Social History Tobacco Use Types Packs/Day Years Used Date Smoking Tobacco: Never Smokeless Tobacco: Never Alcohol Use Standard Drinks/Week Comments Never 0 (1 standard drink = 0.6 oz pur e alcohol) Social Connections Answer Date Recorded Frequency of Communication with Friends and Fami ly Not on file 07/08/2018 Frequency of Social Gatherings with Friends and Family Not on file 07/08/2018 Attends [employer] Not on file 07/08 Active Member of Clubs or Organizations Not on f ile 07/08/2018 Attends Club or Organization Meetings Not on aaron e 07/08/2018 Are you , , di vorced, , never , or living with a partner? Not asked 07/08/2018 Comments No Sex and Gender Information Value Date Recorded Sex Assigned at Not on file Legal Sex Female 4:36 AM CDT Gender Identity Not on file Sexual Orientation Not on file Last Filed Vital Signs Vital Sign Reading Time Taken Comments Blood Pressure 138/82 11/02/2018 9:48 AM CDT Pulse 94 11/02/2018 9:48 AM CDT Temperature 36.8 C (98.2 F) 07/22/2018 7:34 PM CDT Respiratory Rate 17 07/22/2018 7:34 PM CDT Oxygen Saturation 98% 07/22/2018 7:34 PM CDT Inhaled Oxygen Concentration - - Weight 107 kg (236 lb) 07/18/2019 8:29 AM CDT pt provided Height 167.6 cm (5' 6 ) 07/18/2019 8:29 AM CDT Body Mass Index 38.09 07/18/2019 8:29 AM CDT Plan of Treatment Health Maintenance Due Date Last Done Comments HEPATITIS B VACCINES (1 of 3 - 19+ 3-dose series) 2012 INFLUENZA VACCINE (#1) 2023 9, 11/22/2017, 11/22/2014, Additional history exists CERVICAL CANCER SCREENING 11/13/2023 DTAP/TDAP/TD VACCINES (2 - Td or Tdap) 04/14/2029 04/14/2019 HPV VACCINES Aged Out No longer eligi ble based on patient's age to complete this topic Insurance [employer] OPEN [employer]ESS [employer] Advance Directives For more information, please contact: [phone] * Full Code (Latest Code Status on File) Date Activated Date Inactivated Comments 07/08/2018 11:43 AM 07/22/2018 10:03 PM Care Teams Copier Field Service Technician Relationship Specialty [place] [address] [address] PCP - General Family Practice 07/08/18
== END 2024-04-18 13:42 | disposition home or self-care (01) ==
PROVIDERS: Emergency Provider Nurse Practitioner; PCP Nurse Practitioner Family
DX: J10.1 Influenza due to other identified influenza virus with other respiratory manifestations (principal); Z20.822 Contact with and (suspected) exposure to COVID-19
CPT/HCPCS: 87081; 87426; 87804; 87880; 99213; G0463